=== PATIENT | female | born 1970 | race Caucasian/White ===

== ENCOUNTER 2024-03-24 14:29 | Emergency (ER) | payer MEDICARE, MEDICAID ==
[2024-03-24 14:48] LABS: BASOPHILS PERCENT AUTO 0.3 % (0.0-1.0); EOSINOPHILS PERCENT AUTO 0.4 % (1.0-3.0); HEMATOCRIT 42.3 % (37.0-47.0); LYMPHOCYTES PERCENT AUTO 25.8 % (20.5-50.1); MEAN CORPUSCULAR HEMOGLOBIN 30.1 pg (27.0-34.0); MEAN CORPUSCULAR HGB CONC 33.1 g/dL (33.0-35.0); MONOCYTES PERCENT AUTO 11.3 % (2-8); NEUTROPHILS PERCENT AUTO 62.2 % (42.2-75.2); PLATELET COUNT,PLT 185 10^3/uL (150-450); RED BLOOD CELL COUNT 4.65 10^6/uL (4.2-5.4); WHITE BLOOD CELL COUNT,WBC 6.7 10^3/uL (5.0-10.0)
[2024-03-24 15:16] LABS: PROTHROMBIN TIME 10.2 SEC (9.0-12.0)
[2024-03-24 15:26] LABS: ALANINE AMINOTRANSFERASE,ALT 28 U/L (14-59); ALBUMIN 3.2 g/dL (3.4-5.0); ALKALINE PHOSPHATASE 146 U/L (46-116); ANION GAP 10.5 mEq/L (7-13); ASPARTATE AMNIOTRANSFERASE,AST 18 U/L (15-37); BILIRUBIN TOTAL 0.5 mg/dL (0.2-1.0); BLOOD UREA NITROGEN,BUN 17 mg/dL (7-18); BUN/CREATININE RATIO 11.4 (No establ ref range); CALCIUM 8.5 mg/dL (8.5-10.1); CARBON DIOXIDE,CO2 28 mmol/L (21-32); CHLORIDE,CL 104 mmol/L (98-107); CREATININE 1.49 mg/dL (0.55-1.02); EST CRCL DRUG DOSING (CG) 42.95 mL/min; LIPASE 37 U/L (16-77); MAGNESIUM 1.8 mg/dL (1.8-2.4); POTASSIUM,K 3.5 mmol/L (3.5-5.1); PROTEIN TOTAL,TP 6.8 g/dL (6.4-8.2); SODIUM,NA 139 mmol/L (136-145); TSH ULTRASENSITIVE 2.86 uIU/mL (0.36-3.74)
[2024-03-24 15:32] LABS: A/G RATIO 0.89; ESTIMATED GFR 42 mL/min (>=60); GLUCOSE RANDOM 43 mg/dL (70-99)
[2024-03-24] MEDS: Iopamidol 612 MG/ML 100 ML Bottle IVPUSH ONE (15:34)
[2024-03-24] MEDS: Glucose Gel 15 GM in 37.5 GM Tube ONE (15:37)
[2024-03-24 15:38] LABS: KETONES,BLOOD NEGATIVE
[2024-03-24] MEDS: Lactated Ringers 1,000 ML IV SCH (15:44)
[2024-03-24 15:53] LABS: CORONAVIRUS COVID-19 NAA NEGATIVE (NEGATIVE); INFLUENZA A NAA NEGATIVE (NEGATIVE); INFLUENZA B NAA NEGATIVE (NEGATIVE)
[2024-03-24 16:39] LABS: APPEARANCE,URINE CLEAR (CLEAR); BILIRUBIN,URINE NEGATIVE (NEGATIVE); COLOR,URINE YELLOW (YELLOW); GLUCOSE,URINE NEGATIVE (NEGATIVE); KETONES,URINE NEGATIVE (NEGATIVE); LEUKOCYTE ESTERASE,URINE NEGATIVE (NEGATIVE); NITRITE,URINE NEGATIVE (NEGATIVE); OCCULT BLOOD,URINE NEGATIVE (NEGATIVE); PROTEIN,URINE NEGATIVE (NEGATIVE)
[2024-03-24] MEDS: Ondansetron 4 MG/2 ML SDV IVPUSH ONE (17:49)
[2024-03-24] MEDS: HYDROmorphone 0.5 MG/0.5 ML Syringe IVPUSH ONE (18:21)
[2024-03-24] MEDS ORDERED: Naloxone 2 MG/2 ML Syringe IVPUSH PRN (18:34)
[2024-03-24] MEDS: HYDROmorphone 1 MG/ML Syringe IVPUSH ONE (18:40)
[2024-03-27 13:41] LABS: C PEPTIDE,SERUM 7.3 ng/mL (0.5-3.3); INSULIN 9 uIU/mL (3-25)
== END 2024-03-24 20:15 | disposition home or self-care (01) ==
LOC: DL.ED 14:29
DX: S93.492A Sprain of other ligament of left ankle, initial encounter (principal); R56.9 Unspecified convulsions; E16.2 Hypoglycemia, unspecified; I11.0 Hypertensive heart disease with heart failure; I50.9 Heart failure, unspecified; E05.90 Thyrotoxicosis, unspecified without thyrotoxic crisis or storm; Z90.49 Acquired absence of other specified parts of digestive tract; Z79.899 Other long term (current) drug therapy; Z79.890 Hormone replacement therapy; Z91.040 Latex allergy status; Z91.018 Allergy to other foods; Z88.5 Allergy status to narcotic agent; Z91.030 Bee allergy status; Z88.1 Allergy status to other antibiotic agents
CPT/HCPCS: 0240U; 36415; 70450; 70486; 73610-LT; 74177; 80053; 81003; 82009; 82947; 83525; 83690; 83735; 84206; 84439; 84443; 84484; 84681; 85025; 85610; 93005; 93010; 96361; 96374; 96375; 99284; 99285-25; A9270-GY; J1170; J2405; J7120; Q9967